=== PATIENT | male | born 1950 | race Two or more races ===

== ENCOUNTER 2023-01-30 11:06 | Emergency (ER) | payer MEDICAID, OTHER ==
[~2023-01-30] VITALS: Ht 172.7 cm; Wt 96.2 kg
[2023-01-30 11:12] VITALS: BP 125/73; TEMP 98.4
[2023-01-30] MEDS ORDERED: dexaMETHasone SOD PHOSPHATE 10 MG/ML VIAL ONE (11:27)
[2023-01-30] MEDS: dexaMETHasone SOD PHOSPHATE 10 MG/ML VIAL IM ONE (11:28)
[2023-01-30 11:38] VITALS: O2SAT 97
== END 2023-01-30 11:40 | disposition home or self-care (01) ==
LOC: ER 11:10
DX: L29.9 Pruritus, unspecified (principal); T45.515A Adverse effect of anticoagulants, initial encounter; I10 Essential (primary) hypertension; I48.91 Unspecified atrial fibrillation; Y92.89 Other specified places as the place of occurrence of the external cause
CPT/HCPCS: 99283; 96372; J1100

== ENCOUNTER 2023-02-06 18:12 | Emergency (ER) | payer MEDICAID ==
[~2023-02-06] VITALS: Ht 170.2 cm; Wt 91.2 kg
[2023-02-06] MEDS ORDERED: cetrizine 10 MG TABLET PO ONE (19:00)
[2023-02-06] MEDS ORDERED: BETAMETHASONE DIP 0.05% CREAM 15 GM TUBE TP SCH (19:00)
[2023-02-06] MEDS ORDERED: cetrizine 10 MG TABLET ONE (19:07)
[2023-02-06] MEDS ORDERED: FLUOCINONIDE 0.05% 15 GM OINT..GM. TP SCH (19:30)
[2023-02-06] MEDS ORDERED: FLUOCINONIDE 0.05% CREAM 30 GM TUBE TP ONE (20:00)
[2023-02-06] MEDS ORDERED: DIPH25CA83 PO (20:00)
[2023-02-06] MEDS ORDERED: FAMO40TA70 PO (20:00)
[2023-02-06 20:06] VITALS: BP 118/80; TEMP 98.4; O2SAT 100
== END 2023-02-06 20:08 | disposition home or self-care (01) ==
LOC: ER 18:20
DX: L71.9 Rosacea, unspecified (principal); I10 Essential (primary) hypertension; I48.91 Unspecified atrial fibrillation